=== PATIENT | male | born 1980 | race Caucasian/White ===

== ENCOUNTER 2022-10-10 21:41 | Emergency (ER) | payer OTHER, SELFPAY ==
[2022-10-10 21:46] VITALS: BP 157/101; PULSE 65; RESP 16; TEMP 36.4; O2SAT 99
[2022-10-10] MEDS: KETOROLAC 30 MG/ML VIAL (*BKC) IM (22:22)
--- NOTE | 2022-10-10 22:29 | ED.EAR ---
HPI - Ear Problem General Chief complaint: Ear Stated complaint: L ear pain after swimming Time Seen by Provider: 10/10/22 21:56 History of Present Illness HPI Narrative: Patient is a 42-year-old male here for evaluation of left ear pain and fullness x4 hours. Patient states that he was swimming in the deep end of his pool and he felt a pop in his ear. Since then he has had fullness, pain, cannot clear the sensation with normal maneuvers. No drainage from the ear, headache, nausea or vomiting. Related Data Allergies Allergy/AdvReac Type Severity Reaction Status Date / Time No Known Allergies Allergy Verified 10/10/22 22:26 Review of Systems Review of Systems: Gen.: Denies fevers or chills Eyes: Denies eye pain or visual change ENT: Reports ear pain and fullness Respiratory: Denies shortness of breath or cough CV: Denies chest pain or palpitations GI: Denies abdominal pain nausea, emesis or diarrhea denies burning, urgency, frequency or hematuria Musculoskeletal: Denies back pain or muscle pain Neuro: Denies numbness, tingling, weakness or focal weakness Skin: Denies rash Except as documented, all other systems reviewed and negative Exam Narrative: APPEARANCE: Well appearing, no pain in distress, well-nourished. Head: Normocephalic and atraumatic. EYES: PERRLA/EOMI, conjunctivae clear NOSE: No nasal drainage EARS: External ear normal in appearance. Left TM is injected. There is some pain with movement of the tragus in the left ear. Right TM is injected as well. There is no mastoid tenderness bilaterally. THROAT: Oropharynx is clear. Mucous membranes are moist. NECK: Supple. No adenopathy, no masses. RESPIRATORY: Airway patent, respirations nonlabored. Clear to auscultation bilaterally, no rales, rhonchi, wheezing. CARDIOVASCULAR: Regular rate and rhythm without murmurs, rubs, or gallops. ABDOMINAL: Normoactive bowel sounds. Soft, nontender, nondistended. No rebound tenderness or guarding. MUSCULOSKELETAL: Extremities are warm and well-perfused. Moves all extremities well. No edema. NEURO: Normal speech. No focal neurologic deficits. SKIN: Skin is warm and dry. No rashes. PSYCHIATRIC: Normal affect/mood.. Course Vital Signs Vital signs: Vital Signs Temperature 97.6 F 10/10/22 21:46 Pulse Rate 65 10/10/22 21:46 Respiratory Rate 16 10/10/22 21:46 Blood Pressure 157/101 H 10/10/22 21:46 Pulse Oximetry 99 10/10/22 21:46 Oxygen Delivery Room Air 10/10/22 21:46 Temperature 97.6 F 10/10/22 21:46 Pulse Rate 65 10/10/22 21:46 Respiratory Rate 16 10/10/22 21:46 Blood Pressure 157/101 H 10/10/22 21:46 Pulse Oximetry 99 10/10/22 21:46 Oxygen Delivery Room Air 10/10/22 21:46 Medical Decision Making MDM Narrative Medical decision making narrative: 42-year-old male here for evaluation of left ear pain after diving in his dependent pool. His TM is injected on examination but he has no mastoid tenderness or pain with movement of the tragus. Likely barotrauma, possible otitis media, will send home with antibiotics and Flonase and ENT follow-up. Discussed return precautions and he voiced understanding. Vital Signs Vital Signs: Vital Signs Temperature 97.6 F 10/10/22 21:46 Pulse Rate 65 10/10/22 21:46 Respiratory Rate 16 10/10/22 21:46 Blood Pressure 157/101 H 10/10/22 21:46 Pulse Oximetry 99 10/10/22 21:46 Oxygen Delivery Room Air 10/10/22 21:46 Temperature 97.6 F 10/10/22 21:46 Pulse Rate 65 10/10/22 21:46 Respiratory Rate 16 10/10/22 21:46 Blood Pressure 157/101 H 10/10/22 21:46 Pulse Oximetry 99 10/10/22 21:46 Oxygen Delivery Room Air 10/10/22 21:46 Discharge Plan Discharge Clinical Impression: Otitis media, Barotrauma Patient Disposition: Home, Self-Care Condition: Stable Instructions: Antibiotic Form, Earache (ED) Additional Instructions: You may have ear barotrauma from the dive. Jimmie
== END 2022-10-10 22:41 | disposition home or self-care (01) ==
PROVIDERS: Emergency Provider Physician Assistant
DX: H66.92 Otitis media, unspecified, left ear (principal); T70.29XA Other effects of high altitude, initial encounter
CPT/HCPCS: 96372; 99283; J1885